=== PATIENT | female | born 1995 | race Caucasian/White ===

== ENCOUNTER 2018-09-30 17:35 | Emergency (ER) | payer SELFPAY ==
[~2018-09-30] VITALS: Ht 154.9 cm; Wt 63.5 kg
--- NOTE | 2018-09-30 20:00 | NUR ---
Pt came to ER complaining of SOB that started yesterday. Pt respirations are even and unlabored. Pt saturating 99% on RA. NAD noted. PT put on the monitor and pulse ox. Pending eval from ER .
[2018-09-30] MEDS ORDERED: ALBUTEROL FS 2.5 MG/3 ML VIAL.NEB NEB ONE (20:30)
[2018-09-30] MEDS ORDERED: IPRATROPIUM NEB FS 0.5 MG/2.5 ML AMPUL.NEB NEB ONE (20:30)
[2018-09-30] MEDS ORDERED: IPRATROPIUM NEB FS 0.5 MG/2.5 ML AMPUL.NEB ONE (20:36)
[2018-09-30] MEDS ORDERED: ALBUTEROL FS 2.5 MG/0.5 ML VIAL.NEB ONE (20:36)
--- NOTE | 2018-09-30 20:36 | NUR ---
Pt signed waiver for not being .
--- NOTE | 2018-09-30 20:38 | NUR ---
RT at bedside for breathing treatment.
--- NOTE | 2018-09-30 21:15 | NUR ---
Radiology at bedside for xray.
--- NOTE | 2018-09-30 21:55 | NUR ---
Pt being monitored.
--- NOTE | 2018-09-30 22:29 | NUR ---
Patient is resting comfortably in bed. NAD noted.
--- NOTE | 2018-09-30 22:40 | NUR ---
Patient discharged to home in stable condition. Written and verbal after care instructions given. Patient verbalizes understanding of instruction. Pt ambulatory with steady gait.
[2018-09-30 22:41] VITALS: BP 138/76
== END 2018-09-30 22:42 | disposition home or self-care (01) ==
LOC: ER 17:38
DX: J45.909 Unspecified asthma, uncomplicated (principal)
CPT/HCPCS: 71045-TC